=== PATIENT | male | born 1950 | race African-American/Black ===

== ENCOUNTER 2020-12-10 11:45 | Inpatient (IN) | payer OTHER ==
[2020-12-23 12:44] VITALS: BMI 36.8
[2020-12-31] MEDS ORDERED: PROPOFOL 20 ML ONE ×6 (10:05→13:58)
[2020-12-31] MEDS ORDERED: MIDAZOLAM HCL 2 MG/2 ML SINGLE DOSE VIAL ONE ×2 (10:05→10:53)
[2020-12-31] MEDS ORDERED: BUPIVACAINE HCL 50 ML ONE ×2 (10:53→11:34)
[2020-12-31] MEDS ORDERED: BUPIVACAINE LIPOSOME/PF (EXPAREL) 266 MG/20 ML VIAL ONE (10:53)
[2020-12-31] MEDS ORDERED: SODIUM CHLORIDE 0.9% P/F 10 ML VIAL IJ ONE (10:54)
[2020-12-31] MEDS ORDERED: VANCOMYCIN 1,000 MG VIAL (RESTRICTED TO ID ONLY) ONE (12:07)
[2020-12-31] MEDS ORDERED: ceFAZolin SODIUM 1 GM VIAL ONE (12:32)
[2020-12-31] MEDS ORDERED: TRANEXAMIC ACID 1000 MG/10 ML VIAL ONE (12:32)
[2020-12-31] MEDS ORDERED: MAG HYDROX/AL HYDROX/SIMETH 30 ML UNIT-DOSE CUP PO PRN (14:44)
[2020-12-31] MEDS ORDERED: PATIENT'S OWN MEDICATION (NON-FORMULARY) (Ipratropium Bromide [Atrovent Hfa] 12.9 GM Hfa.A IH PRN (14:44)
[2020-12-31] MEDS ORDERED: ONDANSETRON 4 MG/2 ML VIAL IVPUSH PRN ×2 (14:44→15:19)
[2020-12-31] MEDS ORDERED: MAGNESIUM HYDROX 2400MG/30ML ORAL SUSPENSION 30 ML CUP PO PRN (14:44)
[2020-12-31] MEDS ORDERED: LACTATED RINGERS SOLUTION 1,000 ML IV SCH (14:45)
[2020-12-31] MEDS ORDERED: oxyCODONE HCL 5 MG TABLET PO PRN (15:35)
[2020-12-31] MEDS ORDERED: ONDANSETRON 4 MG/2 ML VIAL ONE (15:42)
[2020-12-31] MEDS: ACETAMINOPHEN 325 MG TABLET (FP) PO SCH ×2 (15:44→21:10)
[2020-12-31] MEDS: LACTATED RINGERS SOLUTION 1,000 ML IV SCH (17:19)
[2020-12-31] MEDS: CEFAZOLIN 2 GM/D5W 2 GM/50 ML ML IVPB SCH (17:32)
[2020-12-31] MEDS: oxyCODONE HCL 5 MG TABLET PO PRN (20:28)
[2020-12-31] MEDS: SENNOSIDES/DOCUSATE COMBO (SENNA PLUS) TABLET (UD) PO SCH (21:11)
[2020-12-31] MEDS: ASPIRIN COATED 81 MG TABLET.EC PO SCH (21:11)
[2020-12-31] MEDS ORDERED: BUPRENORPHINE HCL 2 MG SL SCH (22:00)
[2021-01-01] MEDS: CEFAZOLIN 2 GM/D5W 2 GM/50 ML ML IVPB SCH ×2 (00:05→05:50)
[2021-01-01] MEDS: oxyCODONE HCL 5 MG TABLET PO PRN ×4 (00:05→21:07)
[2021-01-01] MEDS: ACETAMINOPHEN 325 MG TABLET (FP) PO SCH ×4 (05:51→21:08)
[2021-01-01 08:30] LABS: HEMATOCRIT 39.4 % (35.4-49); HEMOGLOBIN 13.3 GM/dl (11.7-16.9); MCH 30.1 pg (25.7-33.7); MCHC 33.7 g/dl (32.0-35.9); MEAN CELL VOLUME 89.4 fl (80-96); MEAN PLT VOLUME 8.3 fl (7.5-11.1); PLATELET COUNT 187 10^3/uL (134-434); RBC 4.41 M/mm3 (4.00-5.60); RDW 13.3 % (11.9-15.9); WHITE BLOOD COUNT 7.8 K/mm3 (4.0-10.8)
[2021-01-01 08:32] LABS: CALCIUM 8.3 mg/dl (8.5-10); CREATININE 0.9 mg/dl (0.55-1.3)
[2021-01-01] MEDS: PANTOPRAZOLE 40 MG TABLET PO SCH (09:09)
[2021-01-01] MEDS: SENNOSIDES/DOCUSATE COMBO (SENNA PLUS) TABLET (UD) PO SCH ×2 (09:09→21:08)
[2021-01-01] MEDS: amLODIPine BESYLATE 10 MG TABLET (FP) PO SCH (09:09)
[2021-01-01] MEDS: ASPIRIN COATED 81 MG TABLET.EC PO SCH ×2 (09:09→21:07)
[2021-01-01] MEDS: CELECOXIB 200 MG CAPSULE PO SCH (09:09)
[2021-01-01] MEDS: VALSARTAN 160 MG TABLET PO SCH (09:10)
[2021-01-01] MEDS ORDERED: PATIENT'S OWN MEDICATION (NON-FORMULARY) (Amlodipine Besylate/Valsartan [Amlodipine-Valsar PO SCH (10:00)
[2021-01-01] MEDS: LACTATED RINGERS SOLUTION 1,000 ML IV SCH (16:46)
[2021-01-02] MEDS: ACETAMINOPHEN 325 MG TABLET (FP) PO SCH ×4 (03:24→21:23)
[2021-01-02 07:57] LABS: EOS % 0.6 % (0-4.5); HEMATOCRIT 36.7 % (35.4-49); LYMPH % 22.2 % (8-40); MCH 29.1 pg (25.7-33.7); MCHC 32.7 g/dl (32.0-35.9); MEAN CELL VOLUME 89.2 fl (80-96); MEAN PLT VOLUME 8.6 fl (7.5-11.1); MONO % 13.3 % (3.8-10.2); NEUT % 62.9 % (42.8-82.8); PLATELET COUNT 173 10^3/uL (134-434); RBC 4.12 M/mm3 (4.00-5.60); RDW 13.3 % (11.9-15.9); WHITE BLOOD COUNT 8.8 K/mm3 (4.0-10.8)
[2021-01-02 08:11] LABS: ALBUMIN 2.8 g/dl (3.4-5.0); BILIRUBIN,TOTAL 0.8 mg/dl (0.2-1); CALCIUM 8.2 mg/dl (8.5-10); CREATININE 0.9 mg/dl (0.55-1.3); TOT PROT 6.4 g/dl (6.4-8.2)
[2021-01-02] MEDS: oxyCODONE HCL 5 MG TABLET PO PRN (08:46)
[2021-01-02] MEDS: CELECOXIB 200 MG CAPSULE PO SCH (09:14)
[2021-01-02] MEDS: VALSARTAN 160 MG TABLET PO SCH (09:14)
[2021-01-02] MEDS: amLODIPine BESYLATE 10 MG TABLET (FP) PO SCH (09:14)
[2021-01-02] MEDS: SENNOSIDES/DOCUSATE COMBO (SENNA PLUS) TABLET (UD) PO SCH ×2 (09:14→21:23)
[2021-01-02] MEDS: ASPIRIN COATED 81 MG TABLET.EC PO SCH ×2 (09:14→21:23)
[2021-01-02] MEDS: PANTOPRAZOLE 40 MG TABLET PO SCH (09:14)
[2021-01-02] MEDS: LACTATED RINGERS SOLUTION 1,000 ML IV SCH (15:55)
[2021-01-03] MEDS: ACETAMINOPHEN 325 MG TABLET (FP) PO SCH ×2 (05:55→09:44)
[2021-01-03 08:15] LABS: BASO % 2.4 % (0-2.0); EOS % 1.6 % (0-4.5); HEMATOCRIT 35.9 % (35.4-49); HEMOGLOBIN 11.7 GM/dl (11.7-16.9); LYMPH % 26.1 % (8-40); MCH 29.3 pg (25.7-33.7); MCHC 32.6 g/dl (32.0-35.9); MEAN PLT VOLUME 8.5 fl (7.5-11.1); MONO % 9.8 % (3.8-10.2); NEUT % 60.1 % (42.8-82.8); PLATELET COUNT 178 10^3/uL (134-434); RBC 3.99 M/mm3 (4.00-5.60); RDW 14.3 % (11.9-15.9); WHITE BLOOD COUNT 7.9 K/mm3 (4.0-10.8)
[2021-01-03 08:26] LABS: ALBUMIN 2.6 g/dl (3.4-5.0); BILIRUBIN,TOTAL 0.8 mg/dl (0.2-1); CALCIUM 8.3 mg/dl (8.5-10); CREATININE 0.8 mg/dl (0.55-1.3); MAGNESIUM 1.9 mg/dL (1.8-2.4); TOT PROT 6.1 g/dl (6.4-8.2)
[2021-01-03] MEDS: VALSARTAN 160 MG TABLET PO SCH (09:44)
[2021-01-03] MEDS: CELECOXIB 200 MG CAPSULE PO SCH (09:45)
[2021-01-03] MEDS: ASPIRIN COATED 81 MG TABLET.EC PO SCH (09:45)
[2021-01-03] MEDS: PANTOPRAZOLE 40 MG TABLET PO SCH (09:45)
[2021-01-03] MEDS: SENNOSIDES/DOCUSATE COMBO (SENNA PLUS) TABLET (UD) PO SCH (09:46)
[2021-01-03] MEDS: amLODIPine BESYLATE 10 MG TABLET (FP) PO SCH (09:46)
[2021-01-03 09:47] VITALS: BP 146/85; PULSE 105; TEMP 99.1
== END 2021-01-03 12:40 | disposition home or self-care (01) | DRG 470 ==
LOC: FM/S 12-31 06:44
PROVIDERS: ADMIT Orthopaedic Surgery Orthopaedic Surgery of the Spine; ATTEND Orthopaedic Surgery Orthopaedic Surgery of the Spine
PROC: 0SRD0J9 Replacement of Left Knee Joint with Synthetic Substitute, Cemented, Open Approach (ICD-10-PCS; principal; 2020-12-31 10:30)
DX: M17.12 Unilateral primary osteoarthritis, left knee (principal); I10 Essential (primary) hypertension; E66.9 Obesity, unspecified; F17.210 Nicotine dependence, cigarettes, uncomplicated; J44.9 Chronic obstructive pulmonary disease, unspecified; E78.5 Hyperlipidemia, unspecified; Z68.36 Body mass index [BMI] 36.0-36.9, adult
CPT/HCPCS: 36415; 73560-TC-LT-FY; 80048; 80053; 80061; 83036; 83735; 84443; 85025; 85027; 88304-TC; 88311-TC; 94760; 97010-GP; 97116-GP; 97163-GP; C9803; U0003; U0005